=== PATIENT | female | born 1985 | race Caucasian/White ===

== ENCOUNTER 2019-06-28 08:50 | Emergency (ER) | payer MEDICAID ==
[~2019-06-28] VITALS: Ht 157.5 cm; Wt 43.8 kg
[2019-06-28 09:10] VITALS: BP 133/73
[2019-06-28] MEDS ORDERED: amox tr/potassium clavulanate 875/125mg TAB PO ONE (09:35)
[2019-06-28] MEDS ORDERED: AMOX-117 PO (09:35)
--- NOTE | 2019-06-28 09:45 | NUR ---
Patient seen and assessed by provider.
== END 2019-06-28 10:17 | disposition home or self-care (01) ==
LOC: ER 08:50
DX: K04.7 Periapical abscess without sinus (principal); K02.9 Dental caries, unspecified; F17.200 Nicotine dependence, unspecified, uncomplicated; Z98.890 Other specified postprocedural states; Z79.2 Long term (current) use of antibiotics
CPT/HCPCS: 99283

== ENCOUNTER 2021-04-18 21:06 | Emergency (ER) | payer MEDICAID ==
[~2021-04-18] VITALS: Ht 157.5 cm; Wt 45.1 kg
[2021-04-18 22:15] LABS: CLARITY,URINE CLEAR (Clear); COLOR,URINE YELLOW (Yellow); GLUCOSE, URINE NEGATIVE (Neg); KETONES,URINE NEGATIVE (Neg); LEUKOCYTE ESTERASE ,URINE NEGATIVE (Neg); NITRITES, URINE NEGATIVE (Neg); OCCULT BLOOD,URINE NEGATIVE (Neg); PH,URINE 7.5 (4.8-8.0); PROTEIN,URINE NEGATIVE (Neg); UROBILINOGEN,URINE 0.2 E.U/dL (0.2-1.0)
[2021-04-18 22:16] LABS: BASOPHILS # (AUTO) 0.1 X10'3 (0-0.2); BASOPHILS % (AUTO) 0.6 % (0-1); EOSINOPHILS # (AUTO) 0.3 X10'3 (0-0.9); EOSINOPHILS % (AUTO) 3.4 % (0-6); HEMATOCRIT 37.9 % (35.0-45.0); HEMOGLOBIN 13.2 g/dl (12.0-16.0); LYMPHOCYTES # (AUTO) 3.9 X10'3 (1.1-4.8); LYMPHOCYTES % (AUTO) 48.8 % (21-51); MEAN CORPUSCULAR HEMOGLOBIN 31.7 PG (27.0-31.0); MEAN CORPUSCULAR HGB CONC 34.8 g/dL (33.0-36.5); MEAN CORPUSCULAR VOLUME 91.1 FL (78-98); MEAN PLATELET VOLUME 9.2 FL (7.4-10.4); MONOCYTES # (AUTO) 0.8 X10'3 (0-0.9); MONOCYTES % (AUTO) 10.3 % (2-12); NEUTROPHILS # (AUTO) 2.9 X10'3 (1.8-7.7); NEUTROPHILS % (AUTO) 36.9 % (42-75); PLATELET COUNT 170 X10'3 (140-440); RED BLOOD COUNT 4.17 X10'6 (4.20-5.60)
[2021-04-18 22:16] LABS: URINE HCG NEGATIVE (NEG)
[2021-04-18 22:24] LABS: UA COLLECTION TYPE VOIDED
[2021-04-18 22:27] LABS: URINE AMPHETAMINE SCREEN NEGATIVE (Neg); URINE BARBITUATE SCREEN NEGATIVE (Neg); URINE BENZODIAZEPINES SCREEN NEGATIVE (Neg); URINE CANNABINOID SCREEN POSITIVE (Neg); URINE COCAINE SCREEN NEGATIVE (Neg); URINE METHADONE SCREEN NEGATIVE (Neg); URINE OPIATE SCREEN NEGATIVE (Neg); URINE PHENCYCLIDINE SCREEN NEGATIVE (Neg)
[2021-04-18 22:35] LABS: ALANINE AMINOTRANSFERASE 23 U/L (12-78); ALBUMIN 3.8 G/DL (3.4-5.0); ALBUMIN/GLOBULIN RATIO 1.4 (1.1-1.5); ALKALINE PHOSPHATASE 91 IU/L (46-116); ANION GAP 11 (8-16); ASPARTATE AMINO TRANSFERASE 15 U/L (10-37); BILIRUBIN,TOTAL 0.2 MG/DL (0.1-1.0); BLOOD UREA NITROGEN 14 MG/DL (7-18); BUN/CREATININE RATIO 23.3 (6.6-38.0); CALCIUM 8.4 MG/DL (8.5-10.1); CHLORIDE 105 MMOL/L (99-107); GLUCOSE 122 MG/DL (70-104); POTASSIUM 3.4 MMOL/L (3.5-5.1); SODIUM 142 MMOL/L (135-145); TOTAL CARBON DIOXIDE 25.9 MMOL/L (24-32); TOTAL PROTEIN 6.6 G/DL (6.4-8.2); eGFR > 90 ML/MIN
--- NOTE | 2021-04-18 22:39 | NUR ---
Patient continues to sleep and stay to her self. Patient talks very low when nurse tries to ask patient questions.
[2021-04-18 22:44] LABS: ETHANOL < 0.010 GM/DL (0.0-0.010)
--- NOTE | 2021-04-18 22:48 | NUR ---
Patient was received at 2030 from [facility]. Patient was set straight back due to danger to self. Patient was dropped off by [facility] where she had been staying. Patient was cooperative and quiet on arrival. Patient was changed into green unit scrubs and personal items were taken and cataloged. Nurse attempted to do an intial assessment at this time but patient was upset and guarded. Nurse will try again later when patient has settle in.
--- NOTE | 2021-04-19 00:43 | NUR ---
Patient has awaken since arriving and going to sleep. Patient self ambulated to the bathroom. Nurse starts assesment with patient. Patient states she did not attempt to kill herself this time but has excessive negative self talk. Her voice in her head tells her she is all alone and she should try to overdose on prescribed medications like she did earlier this year. Patient feels the voice has gotten much worse over the last couple of days. The voice pushed her to go find meth again. Patient professes she does want help and hopes that being here will help to put the voice at bay.
[2021-04-19] MEDS ORDERED: DIVA250T8 PO (01:10)
[2021-04-19] MEDS ORDERED: OLAN5TAB75 PO (01:10)
[2021-04-19] MEDS ORDERED: divalproex sod 250mg ER (24-hour) tablet PO SCH (01:21)
[2021-04-19] MEDS ORDERED: OLANZAPINE 5 MG TABLET PO SCH (01:21)
--- NOTE | 2021-04-19 02:51 | NUR ---
Patient asked if someone could sit with her to help distract her from the voice in her head. Nurse used this opportunity to go over the rest of the assessments and interventions with the patient. Patient awnsered all questions and started crying when talking about her medical history. Patient has had episodes of self inflicted harm since she was a teenager which got worse when both of her parents of cancer within 3 months of each other. Patient went on to ask for someone to talk to her on two other occasions.
--- NOTE | 2021-04-19 05:04 | NUR ---
Patient is finally sleeping again. Patient was becoming restless due to other patients being very loud and continuing to shout. Nurse sent over med rec for zyprexa and depakote for approval. Patient was given 750mg of depakote and 5mg of zyprexa. Order is for PO HS.
--- NOTE | 2021-04-19 06:00 | NUR ---
CARE ASSUMED FROM OFF GOING NURSE MITCHELL REES PT. VISIBLE ON THE UNIT RESTING QUIETLY WITHOUT ANY SIGNS OF DISTRESS NOTED. STAFF WILL CONTINUE TO MONITOR FOR SAFETY.
--- NOTE | 2021-04-19 06:06 | NUR ---
Patient continues to sleep breaths are even and unlabored.
--- NOTE | 2021-04-19 09:00 | NUR ---
PT. [id number] THIS SHIFT DENIES ANY CURRENT SI/HI OR A/V HALLUCINATIONS. PT.NOTED TO RESPONDING TO INTERNAL STIMULI WITH SELF TALK , BUT CONTINUES TO DENY AND HALLUCINATIONS TO THIS SISTER SUPERIOR. PT. STATES SHE READY TO GO BACK TO HER REHAB. FACILITY. THIS SISTER SUPERIOR EXPLAINED TO THE PATIENT SHE WILL BE EVAL. BY [facility].
[2021-04-19] MEDS ORDERED: haloperidol lactate 5mg/ml inj IM ONE (09:10)
--- NOTE | 2021-04-19 09:10 | NUR ---
PT. VISIBLE ON THE UNIT WITH HER BEDSIDE PERSONAL ITEMS IN HAND HEADING FOR THE EXIT DOOR. STAFF INTERVENED AT THIS TIME. PT. CRYING STATING SHE CAN;T STAY HER ANY LONGER AND SHE WANTS TO GO BACK TO HER REHAB. FACILITY. PT. STATES SHE NOT GOING TO WAIT ON THE [facility] TO EVALUATION. PROFILER OPERATOR ON THE UNIT AT THIS TIME AND ESCORTED BACK TO HER BED. THIS BATTERY TESTER NOTIFIED DR. LOJA OF INCIDENT AND PT. CURRENT BEHAVIORAL OUTBURST. DR. BUSTAMANTE PLACED ORDER FOR HALDOL 5MG IM X 1 DOSE FOR AGITATION. PT. MEDICATED WITHOUT INCIDENCE. STAFF WILL CONTINUE TO MONITOR FOR SAFETY.
[2021-04-19] MEDS ORDERED: risperiDONE 2mg tablet PO ONE (09:30)
[2021-04-19] MEDS ORDERED: nicotine 21mg patch - 24 hr TD ONE (09:35)
--- NOTE | 2021-04-19 10:59 | NUR ---
PT. VISIBLE ON THE UNIT RESTING QUIETLY WITH EYES CLOSED. NO DISTRESS NOTED. STAFF WILL CONTINUE TO MONITOR FOR SAFETY.
[2021-04-19] MEDS ORDERED: RISP2TAB97 PO (11:32)
--- NOTE | 2021-04-19 11:53 | NUR ---
DISCHARGE INSTRUCTIONS AND PRESCRIPTION DISCUSSED WITH PATIENT. THIS INDUSTRIAL/ORGANIZATIONAL PSYCHOLOGIST SPOKE WITH [facility]- [facility] MEDICAL ADVISOR IN REGARDS TO INDEPENDENT VIDEO PRODUCER TIME AND TO INFORM WORKER OF NEED TO FILL PRESCRIPTION.
--- NOTE | 2021-04-19 12:06 | NUR ---
PT. ESCORTED OF THE UNIT BY THIS MARINE ENGINEERING TEACHER FOR DISCHARGE BACK TO THE [facility]. DISCHARGE PAPER WORK GIVEN TO FRANCES EX ASSISTANT/PROGRAM DIRECTOR.
[2021-04-19 12:14] VITALS: BP 100/60
[2021-04-19] MEDS ORDERED: risperiDONE 2mg tablet PO SCH (21:00)
== END 2021-04-19 12:18 | disposition home or self-care (01) ==
LOC: ER 21:06
DX: R45.851 Suicidal ideations (principal); Z20.822 Contact with and (suspected) exposure to COVID-19; R44.1 Visual hallucinations; F15.90 Other stimulant use, unspecified, uncomplicated; Z98.890 Other specified postprocedural states; Z79.899 Other long term (current) drug therapy
CPT/HCPCS: 36415; 80053; 80305; 80320; 81003; 81025; 84443; 85025; 87635; 96372; 99285; C9803; J1630